=== PATIENT | male | born 1990 | race Two or more races ===

== ENCOUNTER 2017-09-25 05:33 | Emergency (ER) | payer OTHER ==
[~2017-09-25] VITALS: Ht 185.4 cm; Wt 131.7 kg
[2017-09-25 05:36] VITALS: BP 149/100
== END 2017-09-25 06:09 | disposition home or self-care (01) ==
LOC: ED 06:00
DX: F10.129 Alcohol abuse with intoxication, unspecified (principal); Z00.00 Encounter for general adult medical examination without abnormal findings
CPT/HCPCS: 99281; 99282; 99283